=== PATIENT | female | born 1950 | race Caucasian/White ===

== ENCOUNTER 2021-01-08 11:57 | Inpatient (IN) | payer MEDICARE, MEDICAID ==
[~2021-01-08] VITALS: Ht 157.5 cm; Wt 109.0 kg
--- NOTE | 2021-01-08 12:11 | NUR ---
PT SENT BY EMS FROM [place]. PT HAVING DIFFUSE ABD PAIN X 3DAYS. NVD. CT SCAN IN [place] SHOWED: DIALATED SMALL BOWEL LOOPS, PANCREATITIS, DIALTED ASCENDNG AAORTA. PT SENT FOR CTA FOLLOW UP. PT RECIEVED 4 MG MORPHINE X 2, 4MG ZOFRAN, 4 UNITS INSULIN, 1000ML NS [employer]. [facility] PER EMS 285. PT RESTING IN GURNEY. EKG COMPLETE. CONNECTED TO ALL MONITORING EQUIPMENT/
--- NOTE | 2021-01-08 12:31 | NUR ---
3L OXY VIA NC PLACED DUE TO SPO2 88% WITH RA. PT'S SPO2 IS >90% AT THIS TIME. PC IS SITTING POSITION NOW.
--- NOTE | 2021-01-08 12:57 | NUR ---
EDMD AT BEDSIDE FOR EVALUATION AT THIS TIME.
[2021-01-08] MEDS ORDERED: SODIUM CHLORIDE FLUSH 10ML SYR IVF ONE (13:00)
[2021-01-08 13:27] LABS: ALANINE AMINOTRANSFERASE 12 U/L (12-78); ALBUMIN 3.2 g/dL (3.4-5.0); CALCIUM 9.4 mg/dL (8.5-10.1); CREATININE 0.99 mg/dL (0.55-1.02)
[2021-01-08 13:29] LABS: ALKALINE PHOSPHATASE 83 U/L (45-117); BILIRUBIN,TOTAL 0.7 mg/dL (0.2-1.0); TOTAL PROTEIN 6.4 g/dL (6.4-8.2)
[2021-01-08 13:46] LABS: BASOPHILS % (AUTO) 1 % (0-1); EOSINOPHILS % (AUTO) 2 % (1-7); LYMPHOCYTES % (AUTO) 24 % (22-44); MEAN CORPUSCULAR HEMOGLOBIN 31.5 pg (27.0-34.8); MEAN CORPUSCULAR HGB CONC 33.9 g/dL (32.4-35.8); MEAN PLATELET VOLUME 8.6 fL (7.4-10.4); MONOCYTES % (AUTO) 10 % (2-9); NEUTROPHILS % (AUTO) 65 % (42-75); PLATELET COUNT 157 x10^3/uL (130-400); RED BLOOD COUNT 5.36 x10^6/uL (3.82-5.3); RED CELL DISTRIBUTION WIDTH 12.9 % (9.6-15.2)
--- NOTE | 2021-01-08 13:46 | NUR ---
us at bedside at this time.
[2021-01-08 13:47] LABS: MD NO
[2021-01-08 13:53] LABS: ANION GAP 6 mmol/L (5-15); CHLORIDE 105 mmol/L (98-107)
[2021-01-08] MEDS ORDERED: ALBU0.63 NEB (14:01)
[2021-01-08] MEDS ORDERED: AMLO-150 PO (14:01)
[2021-01-08] MEDS ORDERED: vitamin D (14:02)
[2021-01-08] MEDS ORDERED: COLC0.6T37 PO (14:02)
[2021-01-08] MEDS ORDERED: CARV3.1212 PO (14:02)
[2021-01-08] MEDS ORDERED: LEVO25TA4 PO (14:03)
--- NOTE | 2021-01-08 14:04 | NUR ---
pt is not able to recall all home medications.
[2021-01-08] MEDS ORDERED: SODIUM CHLORIDE 0.9% 1,000 ML IV ONE (15:00)
[2021-01-08] MEDS ORDERED: SODIUM CHLORIDE FLUSH 10ML SYR IVF PRN (15:00)
--- NOTE | 2021-01-08 15:11 | NUR ---
report given to geri jorgensen. all questions answered.
[2021-01-08] MEDS ORDERED: ONDANSETRON 2MG/ML, 2ML IVPush PRN (15:30)
[2021-01-08] MEDS ORDERED: hydrALAzine 20 MG/ML, 1ML IVPush PRN (15:30)
[2021-01-08] MEDS ORDERED: LACTATED RINGERS 1,000 ML IV SCH (15:30)
[2021-01-08] MEDS ORDERED: HYDROcodone/APAP 5/325 TABLET PO PRN (15:30)
[2021-01-08] MEDS ORDERED: POLYETHYLENE GLYCOL 17 GM PACKET PO PRN (15:30)
[2021-01-08 15:56] VITALS: BP 136/82
[2021-01-08 16:00] VITALS: BP 136/82
[2021-01-08] MEDS: morphine SULFATE 10 MG/ML, 1ML IVPush PRN ×2 (16:03→20:44)
[2021-01-08 17:20] LABS: HCT (SEDRATE) 49.8 % (34.6-47.8)
[2021-01-08 19:43] VITALS: BP 128/78
[2021-01-08] MEDS: INSULIN LISPRO 100 UNITS/ML, PEN SQ-INSULIN SCH (20:23)
[2021-01-08] MEDS: CARVEDILOL 6.25 MG TABLET PO SCH ×2 (20:24→20:27)
[2021-01-08] MEDS ORDERED: MELATONIN 5 MG TABLET PO PRN (21:00)
[2021-01-08] MEDS ORDERED: LISI-606 PO (23:21)
[2021-01-09 00:20] VITALS: BP 134/70
[2021-01-09 05:12] LABS: BASOPHILS % (AUTO) 1 % (0-1); EOSINOPHILS % (AUTO) 3 % (1-7); LYMPHOCYTES % (AUTO) 23 % (22-44); MEAN CORPUSCULAR HEMOGLOBIN 32.1 pg (27.0-34.8); MEAN CORPUSCULAR HGB CONC 34.8 g/dL (32.4-35.8); MEAN PLATELET VOLUME 8.4 fL (7.4-10.4); MONOCYTES % (AUTO) 10 % (2-9); NEUTROPHILS % (AUTO) 63 % (42-75); PLATELET COUNT 139 x10^3/uL (130-400); RED BLOOD COUNT 5.22 x10^6/uL (3.82-5.3); RED CELL DISTRIBUTION WIDTH 12.9 % (9.6-15.2)
[2021-01-09 05:16] LABS: MD NO
[2021-01-09 05:35] LABS: CHLORIDE 107 mmol/L (98-107)
[2021-01-09] MEDS: LEVOTHYROXINE 75 MCG TABLET PO SCH (05:48)
[2021-01-09] MEDS: NICOTINE 14MG/24 HR PATCH.TD24 TD SCH (05:49)
[2021-01-09 05:52] LABS: ALANINE AMINOTRANSFERASE 12 U/L (12-78); ALKALINE PHOSPHATASE 75 U/L (45-117); ANION GAP 7 mmol/L (5-15); BILIRUBIN,TOTAL 0.8 mg/dL (0.2-1.0); CALCIUM 8.9 mg/dL (8.5-10.1); CREATININE 0.78 mg/dL (0.55-1.02); TOTAL PROTEIN 5.9 g/dL (6.4-8.2)
[2021-01-09 06:08] LABS: TROPONIN I 0.018 ng/mL (0.000-0.045)
[2021-01-09 07:18] VITALS: BP 128/73
[2021-01-09] MEDS: morphine SULFATE 10 MG/ML, 1ML IVPush PRN ×4 (07:27→20:52)
[2021-01-09] MEDS: AMLODIPINE 5 MG TABLET PO SCH (07:33)
[2021-01-09] MEDS: CARVEDILOL 6.25 MG TABLET PO SCH (07:33)
[2021-01-09] MEDS: INSULIN LISPRO 100 UNITS/ML, PEN SQ-INSULIN SCH ×4 (08:00→20:44)
[2021-01-09 13:36] VITALS: BP 156/85
[2021-01-09] MEDS: ENOXAPARIN 40 MG/0.4 ML SQ SCH (15:13)
[2021-01-09] MEDS: LACTATED RINGERS 1,000 ML IV SCH ×2 (16:22→23:30)
[2021-01-09 19:42] VITALS: BP 136/74
[2021-01-10 01:10] VITALS: BP 118/73
[2021-01-10] MEDS: morphine SULFATE 10 MG/ML, 1ML IVPush PRN ×3 (04:32→16:18)
[2021-01-10 05:48] LABS: BASOPHILS % (AUTO) 1 % (0-1); EOSINOPHILS % (AUTO) 3 % (1-7); LYMPHOCYTES % (AUTO) 32 % (22-44); MEAN CORPUSCULAR HEMOGLOBIN 31.2 pg (27.0-34.8); MEAN PLATELET VOLUME 8.8 fL (7.4-10.4); MONOCYTES % (AUTO) 11 % (2-9); NEUTROPHILS % (AUTO) 53 % (42-75); PLATELET COUNT 140 x10^3/uL (130-400); RED CELL DISTRIBUTION WIDTH 12.9 % (9.6-15.2)
[2021-01-10 05:58] LABS: MD NO
[2021-01-10 06:04] LABS: ALBUMIN 2.6 g/dL (3.4-5.0); ANION GAP 4 mmol/L (5-15); CALCIUM 9.3 mg/dL (8.5-10.1); CHLORIDE 108 mmol/L (98-107)
[2021-01-10 06:09] LABS: ALANINE AMINOTRANSFERASE 13 U/L (12-78); ALKALINE PHOSPHATASE 66 U/L (45-117); BILIRUBIN,TOTAL 0.9 mg/dL (0.2-1.0); CREATININE 0.79 mg/dL (0.55-1.02); TOTAL PROTEIN 5.2 g/dL (6.4-8.2)
[2021-01-10] MEDS: LEVOTHYROXINE 75 MCG TABLET PO SCH (06:14)
[2021-01-10] MEDS: NICOTINE 14MG/24 HR PATCH.TD24 TD SCH (06:15)
[2021-01-10 07:12] VITALS: BP 150/94
[2021-01-10] MEDS: LACTATED RINGERS 1,000 ML IV SCH ×3 (08:10→22:55)
[2021-01-10] MEDS: LISINOPRIL 5 MG TABLET PO SCH (08:13)
[2021-01-10] MEDS: AMLODIPINE 5 MG TABLET PO SCH (08:13)
[2021-01-10] MEDS: INSULIN LISPRO 100 UNITS/ML, PEN SQ-INSULIN SCH ×4 (08:15→20:25)
[2021-01-10 13:17] VITALS: BP 117/77
[2021-01-10] MEDS: ENOXAPARIN 40 MG/0.4 ML SQ SCH (15:00)
[2021-01-10 19:18] VITALS: BP 142/89
[2021-01-11 00:30] VITALS: BP 106/71
[2021-01-11 05:16] LABS: BASOPHILS % (AUTO) 1 % (0-1); EOSINOPHILS % (AUTO) 4 % (1-7); LYMPHOCYTES % (AUTO) 29 % (22-44); MEAN CORPUSCULAR HEMOGLOBIN 31.5 pg (27.0-34.8); MEAN CORPUSCULAR HGB CONC 34.3 g/dL (32.4-35.8); MEAN PLATELET VOLUME 8.7 fL (7.4-10.4); MONOCYTES % (AUTO) 10 % (2-9); NEUTROPHILS % (AUTO) 57 % (42-75); PLATELET COUNT 147 x10^3/uL (130-400); RED BLOOD COUNT 5.02 x10^6/uL (3.82-5.3); RED CELL DISTRIBUTION WIDTH 12.7 % (9.6-15.2)
[2021-01-11 05:30] LABS: MD NO
[2021-01-11 05:32] LABS: CHLORIDE 110 mmol/L (98-107)
[2021-01-11 05:38] LABS: ALANINE AMINOTRANSFERASE 14 U/L (12-78); ALKALINE PHOSPHATASE 71 U/L (45-117); ANION GAP 5 mmol/L (5-15); CALCIUM 9.7 mg/dL (8.5-10.1); CREATININE 0.78 mg/dL (0.55-1.02); TOTAL PROTEIN 5.7 g/dL (6.4-8.2)
[2021-01-11] MEDS: LEVOTHYROXINE 75 MCG TABLET PO SCH (06:07)
[2021-01-11] MEDS: LACTATED RINGERS 1,000 ML IV SCH (06:08)
[2021-01-11] MEDS: NICOTINE 14MG/24 HR PATCH.TD24 TD SCH (06:13)
[2021-01-11 07:40] VITALS: BP 158/79
[2021-01-11] MEDS: INSULIN LISPRO 100 UNITS/ML, PEN SQ-INSULIN SCH ×4 (08:01→21:39)
[2021-01-11] MEDS: AMLODIPINE 5 MG TABLET PO SCH (08:01)
[2021-01-11] MEDS: LISINOPRIL 5 MG TABLET PO SCH (08:02)
[2021-01-11] MEDS: ENOXAPARIN 30 MG/0.3 ML SQ SCH ×2 (11:44→22:31)
[2021-01-11] MEDS: morphine SULFATE 10 MG/ML, 1ML IVPush PRN (11:45)
[2021-01-11 12:51] VITALS: BP 117/68
[2021-01-11 18:52] VITALS: BP 150/85
[2021-01-12 00:24] VITALS: BP 153/92
[2021-01-12 05:16] LABS: BASOPHILS % (AUTO) 1 % (0-1); EOSINOPHILS % (AUTO) 3 % (1-7); LYMPHOCYTES % (AUTO) 30 % (22-44); MEAN CORPUSCULAR HEMOGLOBIN 31.5 pg (27.0-34.8); MEAN CORPUSCULAR HGB CONC 34.8 g/dL (32.4-35.8); MEAN PLATELET VOLUME 8.8 fL (7.4-10.4); MONOCYTES % (AUTO) 12 % (2-9); NEUTROPHILS % (AUTO) 55 % (42-75); PLATELET COUNT 144 x10^3/uL (130-400); RED BLOOD COUNT 4.81 x10^6/uL (3.82-5.3); RED CELL DISTRIBUTION WIDTH 12.7 % (9.6-15.2)
[2021-01-12 05:25] LABS: MD NO
[2021-01-12 05:26] LABS: ALBUMIN 2.8 g/dL (3.4-5.0); ANION GAP 4 mmol/L (5-15); CALCIUM 9.2 mg/dL (8.5-10.1); CHLORIDE 107 mmol/L (98-107)
[2021-01-12 05:29] LABS: ALANINE AMINOTRANSFERASE 14 U/L (12-78); ALKALINE PHOSPHATASE 69 U/L (45-117); BILIRUBIN,TOTAL 0.8 mg/dL (0.2-1.0); CREATININE 0.78 mg/dL (0.55-1.02); TOTAL PROTEIN 5.5 g/dL (6.4-8.2)
[2021-01-12] MEDS: NICOTINE 14MG/24 HR PATCH.TD24 TD SCH (05:49)
[2021-01-12] MEDS: LEVOTHYROXINE 75 MCG TABLET PO SCH (05:50)
[2021-01-12 07:20] VITALS: BP 170/91
[2021-01-12] MEDS: LISINOPRIL 5 MG TABLET PO SCH (07:58)
[2021-01-12] MEDS: INSULIN LISPRO 100 UNITS/ML, PEN SQ-INSULIN SCH ×2 (07:58→11:44)
[2021-01-12] MEDS: AMLODIPINE 5 MG TABLET PO SCH (07:58)
[2021-01-12] MEDS ORDERED: HYDR-2214 PO (11:47)
[2021-01-12] MEDS ORDERED: NICO-486 TD (11:47)
[2021-01-12] MEDS ORDERED: INSU100I13 SQ-INSULIN (11:51)
[2021-01-12] MEDS: ENOXAPARIN 30 MG/0.3 ML SQ SCH (12:13)
[2021-01-12 13:35] VITALS: BP 140/90
== END 2021-01-12 14:21 | disposition home or self-care (01) | DRG 438 ==
LOC: ED 14:32 → 3N 14:48 → SUATTDRO 14:53 → 3N 15:32
PROVIDERS: ADMIT Hospitalist; ATTEND Hospitalist
DX: K85.00 Idiopathic acute pancreatitis without necrosis or infection (principal); I82.0 Budd-Chiari syndrome; K86.2 Cyst of pancreas; K56.690 Other partial intestinal obstruction; Z68.41 Body mass index [BMI] 40.0-44.9, adult; K56.600 Partial intestinal obstruction, unspecified as to cause; K86.1 Other chronic pancreatitis; K57.30 Diverticulosis of large intestine without perforation or abscess without bleeding; D35.02 Benign neoplasm of left adrenal gland; E03.9 Hypothyroidism, unspecified; E11.65 Type 2 diabetes mellitus with hyperglycemia; E66.9 Obesity, unspecified; F17.210 Nicotine dependence, cigarettes, uncomplicated; I10 Essential (primary) hypertension; Z96.653 Presence of artificial knee joint, bilateral; I25.10 Atherosclerotic heart disease of native coronary artery without angina pectoris; K76.0 Fatty (change of) liver, not elsewhere classified; M81.0 Age-related osteoporosis without current pathological fracture; D73.5 Infarction of spleen; N28.1 Cyst of kidney, acquired; Z90.49 Acquired absence of other specified parts of digestive tract; Z90.710 Acquired absence of both cervix and uterus; Z88.0 Allergy status to penicillin; Z88.2 Allergy status to sulfonamides
CPT/HCPCS: 36415; 74181; 76700; 80053; 82962; 83036; 83690; 83735; 83880; 84100; 84443; 84484; 85025; 85651; 93005; 93306; G0378; J1650; J1815; J2270; J7030; J7120

== ENCOUNTER 2021-02-15 07:18 | Day surgery (SDC) | payer MEDICARE, MEDICAID ==
[~2021-02-15] VITALS: Ht 157.5 cm; Wt 107.5 kg
[~2021-02-15 07:18] MED LIST: ALBU0.63 NEB; AMLO-150 PO; CARV3.1212 PO; COLC0.6T37 PO; HYDR-2214 PO; INSU100I13 SQ-INSULIN; LEVO25TA4 PO; LISI-606 PO; NICO-486 TD; vitamin D
[2021-02-15 08:01] VITALS: BP 164/92
[2021-02-15] MEDS ORDERED: LEVO75TA5 PO (08:11)
[2021-02-15] MEDS ORDERED: HYDR-826 PO (08:11)
[2021-02-15] MEDS ORDERED: INSU100V35 SC (08:11)
[2021-02-15] MEDS ORDERED: ALBU8.5H8 INH (08:11)
[2021-02-15] MEDS ORDERED: INSU100C SQ-INSULIN (08:11)
[2021-02-15] MEDS ORDERED: LISI5TAB7 PO (08:11)
[2021-02-15] MEDS ORDERED: EMPA10TA PO (08:11)
[2021-02-15] MEDS ORDERED: COLC0.6T37 PO (08:11)
[2021-02-15] MEDS ORDERED: HYDR-2214 PO (08:11)
[2021-02-15] MEDS ORDERED: LINA5TAB PO (08:11)
[2021-02-15] MEDS ORDERED: CARV12.52 PO (08:11)
[2021-02-15] MEDS ORDERED: CHLORHEXIDINE 15 ML UDC ONE (08:26)
[2021-02-15] MEDS ORDERED: PROPOFOL 10 MG/ML, 20ML ONE (08:38)
[2021-02-15] MEDS ORDERED: OXYcodone 5 MG/5 ML ORAL.SOL UDC PO PRN (09:00)
[2021-02-15] MEDS ORDERED: FENTANYL PF 100 MCG/2ML IV PRN (09:00)
[2021-02-15] MEDS ORDERED: ALBUTEROL SULFATE 2.5 MG/3 ML NPPB PRN (09:00)
[2021-02-15] MEDS ORDERED: ONDANSETRON 2MG/ML, 2ML IVPush PRN (09:00)
[2021-02-15] MEDS ORDERED: ACETAMINOPHEN 325 MG TABLET PO PRN (09:00)
[2021-02-15] MEDS ORDERED: PROMETHAZINE 25 MG/ML, 1ML IVPush PRN (09:00)
[2021-02-15] MEDS ORDERED: LORazepam 2 MG/ML, 1ML IVPush PRN (09:00)
[2021-02-15] MEDS ORDERED: hydrALAzine 20 MG/ML, 1ML IV PRN (09:00)
[2021-02-15] MEDS ORDERED: PROMETHAZINE 25 MG SUPP PR PRN (09:00)
[2021-02-15] MEDS ORDERED: LABETALOL 5MG/ML, 20ML IV PRN (09:00)
[2021-02-15] MEDS ORDERED: METHOCARBAMOL 1,000 MG in DEXTROSE 5% 100 ML IV PRN (09:00)
== END 2021-02-15 11:45 | disposition home or self-care (01) ==
LOC: OUT 07:18
PROVIDERS: ATTEND Internal Medicine Gastroenterology
DX: K86.2 Cyst of pancreas (principal); K86.1 Other chronic pancreatitis; K86.89 Other specified diseases of pancreas; K29.50 Unspecified chronic gastritis without bleeding; K44.9 Diaphragmatic hernia without obstruction or gangrene; E11.9 Type 2 diabetes mellitus without complications; I10 Essential (primary) hypertension; J44.9 Chronic obstructive pulmonary disease, unspecified; E66.01 Morbid (severe) obesity due to excess calories; Z20.822 Contact with and (suspected) exposure to COVID-19; Z79.899 Other long term (current) drug therapy
CPT/HCPCS: 43239; 43259; 82962; 87635; 88305; J2704